=== PATIENT | female | born 1970 | race Caucasian/White ===

== ENCOUNTER → 2017-06-11 | Outpatient (CLI) | payer BC | END | disposition home or self-care (01) | LOC: C.PAPS 10:55 | PROVIDERS: ATTEND Obstetrics & Gynecology | DX: Z01.411 Encounter for gynecological examination (general) (routine) with abnormal findings (principal); N87.0 Mild cervical dysplasia ==

== ENCOUNTER → 2017-07-30 | Outpatient (CLI) | payer BC ==
--- NOTE | 2017-07-31 17:17 | MAMMOGRAPHY REPORT ---
BILATERAL DIGITAL SCREENING MAMMOGRAM WITH CAD: 07/30/2017 CLINICAL HISTORY: Routine screening. Patient has no complaints. TECHNIQUE: Bilateral CC and MLO views of the breasts with and without implant displacement views were obtained. Current study was also evaluated with a Computer Aided Detection (CAD) system. COMPARISON: Comparison is made to exams dated: 08/21/2016 mammogram, 08/21/2016 ultrasound, 05/11/2013 mammogram, 11/06/2011 mammogram - [facility], and 10/15/2008. BREAST COMPOSITION: The tissue of both breasts is extremely dense, which lowers the sensitivity of m ammography. FINDINGS: Bilateral subpectoral saline implants are intact. No suspicious mass, architectural distor tion or cluster of microcalcifications is seen. IMPRESSION: ACR BI-RADS CATEGORY 1: NEGATIVE 1. Stable bilateral mammograms, without mammographic evidence of malignancy. A 1 year screening kurtis mogram is recommended. 2. After the prior fine-needle aspiration performed of a palpable lump in the right axilla, a follow -up targeted ultrasound versus surgical consultation was recommended. The patient has not returned t o our department for follow-up ultrasound and it is unclear if surgical consultation and/or excision has been performed. Therefore, if no surgical consultation has been performed would consider a repea t targeted ultrasound in the area of palpable lump, if it is still felt by the patient, to ensure sta bility as this area is not visualized mammographically. The patient will receive written notification of the results. Approximately 10% of breast cancers are not detected with mammography. A negative mammographic report should not delay biopsy if a clinically suggestive mass is present. Stephani Garcia M.D. ay/:07/31/2017 15:54:20 [employer] Treasurer: Vicky GILL)([place]), [facility] letter sent: Normal 1/2 BI-RADS Code: ACR BI-RADS Category 1: Negative
== END | disposition home or self-care (01) ==
LOC: C.MAMM 16:01
PROVIDERS: ATTEND Obstetrics & Gynecology
DX: Z12.31 Encounter for screening mammogram for malignant neoplasm of breast (principal)

== ENCOUNTER → 2017-08-30 | Outpatient (CLI) | payer BC ==
--- NOTE | 2017-08-30 14:13 | MAMMOGRAPHY REPORT ---
ULTRASOUND OF RIGHT BREAST: 08/30/2017 CLINICAL HISTORY: The patient underwent fine-needle aspiration of a palpable right axillary mass 2015. Results showed acellular material consistent with cyst contents, with no malignant cells s een. The patient reports no change in the size of the lump. COMPARISON: Comparison is made to exams dated: 07/30/2017 mammogram, 09/11/2016 fine needle aspiratio n, 08/21/2016 mammogram, 08/21/2016 ultrasound, 02/18/2015 mammogram, and 05/11/2013 mammogram - [facility]. TECHNIQUE: Real-time targeted ultrasound of the right axilla was performed. FINDINGS: Real-time, high resolution targeted ultrasound was performed of the area of the palpable l ump pointed out by the patient in the right axilla. At the site of the palpable lump there is a supe rficial dermal/subdermal hypoechoic non-circumscribed mass which measures 3 x 3 x 2 mm, with some pos terior acoustic shadowing seen. The mass is stable in size and appearance compared to the September 06 exam where the mass previously measured 3 x 2 x 2 mm. Given the stability and given the benign fi ndings on fine-needle aspiration, the mass is considered benign and may represent a sebaceous/epiderm al inclusion cyst. IMPRESSION: ACR BI-RADS CATEGORY 2: BENIGN Stable size and appearance of the palpable superficial hypoechoic 3 mm mass in the right axilla, stab le compared to the August 2016 exam. Given the stability and given the benign cytology results from fine-needle aspiration, the mass is considered benign and may represent a sebaceous/epidermal inclus ion cyst. There is no sonographic evidence of malignancy. Recommend clinical follow-up for the palpable right axillary lump, and recommend return to routine an nual mammogram screening schedule. The patient was verbally notified of the results. Lorenza Russell M.D. /:08/30/2017 08:31:38 [employer] Teacher: Lorenza Russell MD, [facility] letter sent: Normal 1/2 BI-RADS Code: ACR BI-RADS Category 2: Benign
== END | disposition home or self-care (01) ==
LOC: C.MAMM 08:14
PROVIDERS: ATTEND Obstetrics & Gynecology
DX: R22.9 Localized swelling, mass and lump, unspecified (principal)

== ENCOUNTER → 2018-06-13 | Outpatient (CLI) | payer BC | END | disposition home or self-care (01) | LOC: C.PAPS 13:52 | PROVIDERS: ATTEND Obstetrics & Gynecology | DX: Z01.419 Encounter for gynecological examination (general) (routine) without abnormal findings (principal); N87.0 Mild cervical dysplasia ==